=== PATIENT | female | born 1980 | race Caucasian/White ===

== ENCOUNTER 2020-08-19 13:28 | Outpatient (REF) | payer OTHER, SELFPAY ==
[2020-08-19 13:55] LABS: COVID-19 Test Negative (Negative)
== END 2020-08-19 13:29 | disposition home or self-care (01) ==
LOC: HO.LAB 13:28
PROVIDERS: Visit Provider Internal Medicine
DX: Z20.828 Contact with and (suspected) exposure to other viral communicable diseases (principal)
CPT/HCPCS: 87635

== ENCOUNTER 2020-08-23 06:31 | Outpatient (REF) | payer OTHER, SELFPAY ==
[2020-08-23 07:23] LABS: COVID-19 Test Negative (Negative)
== END 2020-08-23 06:32 | disposition home or self-care (01) ==
LOC: HO.LAB 06:31
PROVIDERS: Visit Provider Internal Medicine
DX: Z20.828 Contact with and (suspected) exposure to other viral communicable diseases (principal)
CPT/HCPCS: 87635

== ENCOUNTER 2020-08-26 13:21 | Outpatient (REF) | payer OTHER, SELFPAY ==
[2020-08-26 13:44] LABS: COVID-19 Test Negative (Negative)
== END 2020-08-26 13:22 | disposition home or self-care (01) ==
LOC: HO.LAB 13:21
PROVIDERS: PCP Internal Medicine; Visit Provider Internal Medicine
DX: Z20.828 Contact with and (suspected) exposure to other viral communicable diseases (principal)
CPT/HCPCS: 87635

== ENCOUNTER 2020-12-11 08:35 | Emergency (ER) | payer OTHER, SELFPAY ==
--- NOTE | ~2020-12-11 | CT_ITS ---
EXAMINATION: CT CERVICAL SPINE WITHOUT CONTRAST CLINICAL INFORMATION: Mid and lower neck pain radiating down left arm. Please include upper thoracic spine. COMPARISON: None TECHNIQUE: Multidetector CT imaging of the cervical spine was performed, including the upper thoracic spine. Coronal and sagittal reformats are reviewed. This CT examination was performed using dose optimization techniques as appropriate, variously including the following: *Automated exposure control *Adjustment of mA and/or kV according to patient size (this includes techniques or standardized protocols for targeted exams where dose is matched to indication/reason for exam; i.e. extremities or head) *Use of iterative reconstruction technique DLP: 922 mGy-cm FINDINGS: Atlantooccipital, atlantoaxial and cervical alignment are maintained. No acute fracture or subluxation. Vertebral body heights and intervertebral disc spaces are preserved. Small endplate osteophytes and accompanying of vertebral arthrosis present at C5-C6 and C6-C7. No significant central canal stenosis or osseous neural foraminal encroachment. Imaged thoracic spine to the level of T6 unremarkable. No significant degenerative changes within the upper thoracic spine. Paraspinal soft tissues unremarkable. CT/CT cervical spine wo con IMPRESSION: No acute cervical spine fracture or traumatic malalignment. No significant osseous neural foraminal encroachment. Imaged thoracic spine to level of T6 unremarkable.
[2020-12-11 08:44] VITALS: BP 175/94; PULSE 62; RESP 18; TEMP 36.7; O2SAT 100; BMI 36.3
[2020-12-11] MEDS: oxyCODONE HCl Immed Release 5 MG TABLET PO ×2 (10:02→11:55)
--- NOTE | 2020-12-11 10:52 | ED_ITS ---
HPI - Neck Pain/Injury General Chief Complaint: Neck Pain/Injury Stated Complaint: NECK SHOULDER PAIN Time Seen by Provider: 12/11/20 09:42 Source: patient Mode of arrival: ambulatory Limitations: no limitations History of Present Illness HPI Narrative: 40-year-old female with a past medical history of chronic GERD and Lyme disease presenting to the ED with complaints of bilateral neck/upper back pain for the past 2 weeks getting worse despite taking [id number] Motrin/Tylenol then she followed up with her primary care provider who prescribed her Flexeril, gabapentin and Zanaflex and no symptomatic relief and she reports now the pain is traveling to her left shoulder and elbow. She reports she had an x-ray on Sunday which was within normal limits. MD complaint: neck pain and upper back pain Onset (ago): week(s) (2 weeks worse today) Place: home Radiation: left shoulder and left upper extremity Severity: severe Severity scale (1-10): >10 Quality: aching and spasming Duration: constant Relieving factors: none Exacerbating factors: movement of neck Associated symptoms: none Treatments prior to arrival: other (See above) Related Data Previous Rx's Medication Instructions Recorded acetaminophen [Tylenol Extra 1,000 mg PO QID PRN #14 tab 12/11/20 Strength] diazepam [Valium] 5 mg PO TID PRN #14 tab 12/11/20 famotidine [Pepcid] 20 mg PO BID #20 tab 12/11/20 ketorolac 10 mg PO TID PRN 5 Days #15 tab 12/11/20 lidocaine [Lidoderm] 1 patch TOPICAL DAILY #15 ea 12/11/20 oxycodone 10 mg PO BID PRN #10 tab 12/11/20 prednisone 40 mg PO DAILY 5 Days #10 tab 12/11/20 Allergies Allergy/AdvReac Type Severity Reaction Status Date / Time No Known Allergies Allergy Verified 12/11/20 08:50 Review of Systems Review of Systems: Constitutional : No trauma, No Weight loss, No Fever, No Chills, ENT/Mouth : No Hearing loss, No Ear Pain, No Nasal Congestion, No Sinus Pain, No Hoarseness, No sore throat, No Rhinorrhea, No Swallowing Difficulty Cardiovascular : No Chest Pain, No SOB Respiratory : No Cough, No Dyspnea Gastrointestinal : No Nausea, No Vomiting, No Diarrhea, No abdominal Pain, No Hematochezia, No Melena Genitourinary : No Dysuria, No Urinary Frequency, No Hematuria, No Urinary or Bowel Incontinence/retention Musculoskeletal : + Neck pain, + Back pain, No joint stiffness, No joint swelling Skin : No Skin Lesions, No rash or signs of infection Neuro : No Weakness, No radiation, No Numbness, No headache, no loss of bowel or bladder incontinence, no saddle anesthesia Denies history of IV drug usage. Yes all other systems are reviewed and are negative [facility] Past Medical History Attestation statement: The following information was validated with the patient. Medical History Chronic GERD Lyme disease Social History Social History Smoking Status: Former smoker Use of substances other than those prescribed or required for medical reasons: No Advance Directives: No Advance Directives Information Provided: Yes Physical Exam Vital Signs: Vital Signs: Last Vital Signs Temp 98.0 F 12/11/20 08:44 Pulse 67 12/11/20 11:11 Resp 20 12/11/20 11:11 BP 168/118 H 12/11/20 11:11 Pulse Ox 98 12/11/20 11:11 Body Mass Index 36.3 vital signs have been reviewed as normal and appeared to be correct. Blood pressure hypertensive. Heart rate normal. Respiration rate normal. Temperature normal. Oxygen saturation normal. Appearance: Alert. Oriented X3. In severe pain crying on exam c tears present. Otherwise No acute distress. Head: Normal external exam. Normocephalic. Atraumatic. No Danielle signs noted. No raccoon eyes noted Eyes: PERRLA. EOMI. Conjunctiva and sclera normal. Eyelids normal. ENT: Pharynx normal. Uvula midline. Moist mucous membranes. Neck: Normal inspection. Neck supple. FROM. No adenopathy. Thyroid Normal. Trachea midline. No meningeal signs. No neck mass noted. Tender to palpation of bilateral paracervical musculature and mid cervical tenderness. No step-offs or deformities noted. Patient neuro intact bilaterally and distally on all 4 extremities. Reflexes intact bilaterally and distally in all 4 extremities. No rashes/lesion/induration/fluctuance or signs of infection noted. No edema noted. CVS: Normal heart rate and rhythm. Respiratory: No respiratory distress. Painless inspiration. Back: No CVA tenderness. Full range of motion noted. No obvious deformities, or edema. Mild para-spinal muscular tenderness from cervical to thoracic region. No lumbar tenderness. Full ROM in back and lower extremities. 5/5 strength hip extension/flexion, abduction. No rashes/lesion/induration/fluctuance or signs of infection noted. Skin: Skin warm and dry. Normal skin color. Normal skin turgor. No rashes/lesions/lacerations noted. Extremities: No lower extremity edema. Extremities exhibit normal range of motion. Extremities nontender. Neuro: Oriented X 3. No motor deficit. No sensory deficit. Reflexes normal. Normal steady gait. Course Course Course Narrative: Pt c likely muscular pain, but could be herniated disc. Neuro exam shows no deficits. Not c/w AAA/epidural abscess/dissection. Not c/w vascular etiology, perivertebral / other soft tissue neck / airway infection, or spinal fx / process. No high risk Hx (Incont, fever, immunosupp, recent surgery/LP, coag, signif trauma, wt loss, puls mass, hx/o Ca, TB, or IVDU) to warrant MRI. Not c/w Pyelo/UTI/kidney stone/spinal fx. Not cauda equina syndrome. Will obtain a CT scan of cervical spine due to patient is requesting it if negative will DC c meds and f/u. Patient understands agrees with this plan. MDM - Neck Pain/Injury Medical Records Attestation: I reviewed the patient's medical records. Lab Data Attestation: I reviewed the patient's lab results. Imaging Data Cervical spine CT: Attestation: I personally reviewed and interpreted this imaging study as follows: Radiologist's impression: FINDINGS: Atlantooccipital, atlantoaxial and cervical alignment are maintained. No acute fracture or subluxation. Vertebral body heights and intervertebral disc spaces are preserved. Small endplate osteophytes and accompanying of vertebral arthrosis present at C5-C6 and C6-C7. No significant central canal stenosis or osseous neural foraminal encroachment. Imaged thoracic spine to the level of T6 unremarkable. No significant degenerative changes within the upper thoracic spine. Paraspinal soft tissues unremarkable. CT/CT cervical spine wo con IMPRESSION: No acute cervical spine fracture or traumatic malalignment. No significant osseous neural foraminal encroachment. Imaged thoracic spine to level of T6 unremarkable. Discharge Plan Discharge Clinical Impression: Cervical radiculopathy, Cervical paraspinal muscle spasm, Spasm of thoracic back muscle, Cervical osteophyte Patient Disposition: Home, Self-Care Instructions: Spasmodic Torticollis (ED), Cervical Radiculopathy (ED), Muscle Spasm (ED) Prescriptions: New prednisone 20 mg tablet 40 mg PO DAILY 5 Days Qty: 10 RF: 0 acetaminophen [Tylenol Extra Strength] 500 mg tablet 1,000 mg PO QID PRN (Reason: fever or pain) Qty: 14 RF: 0 ketorolac 10 mg tablet 10 mg PO TID PRN (Reason: pain) 5 Days Qty: 15 RF: 0 famotidine [Pepcid] 20 mg tablet 20 mg PO BID Qty: 20 RF: 0 lidocaine [Lidoderm] 5 % adhesive patch,medicated 1 patch topical DAILY Qty: 15 RF: 0 oxycodone 5 mg tablet 10 mg PO BID PRN (Reason: pain) Qty: 10 RF: 0 diazepam [Valium] 5 mg tablet 5 mg PO TID PRN (Reason: muscle spasm) Qty: 14 RF: 0 Referrals: Gaye Cat MD [Primary Care Provider] - 2 days Stand Alone Forms: Work/School Release Print Language: Prydeinig
[2020-12-11 11:11] VITALS: BP 168/118; PULSE 67; RESP 20; O2SAT 98
--- NOTE | 2020-12-11 11:12 | PC.NURSE ---
pt reports no improvement after the medications, pain still 8/10 feels like spasms. aware
[2020-12-11] MEDS: methylPREDNISolone Sod Succ/PF 125 MG/2 ML VIAL IVPUSH (11:45)
[2020-12-11] MEDS: Ketorolac Tromethamine 30 MG/ML VIAL IVPUSH (11:45)
[2020-12-11] MEDS: diazePAM 5 MG TABLET PO (11:45)
[2020-12-11] MEDS: 0.9 % Sodium Chloride 1,000 ML 999 ML IVCONT (11:45)
--- NOTE | 2020-12-11 12:45 | PC.NURSE ---
pt reports feeling better pain at 1/10
== END 2020-12-11 12:53 | disposition home or self-care (01) ==
PROVIDERS: Emergency Provider Emergency Medicine Emergency Medical Services; PCP Internal Medicine
DX: M54.12 Radiculopathy, cervical region (principal); G24.3 Spasmodic torticollis; M62.830 Muscle spasm of back; M25.78 Osteophyte, vertebrae; A69.20 Lyme disease, unspecified; K21.9 Gastro-esophageal reflux disease without esophagitis
CPT/HCPCS: 72125; 96361; 96374; 96375; 99284; J1885; J2930

== ENCOUNTER 2021-11-11 19:12 | Outpatient (REF) | payer OTHER, SELFPAY ==
[2021-11-11 19:55] LABS: COVID-19 Test Negative (Negative)
== END 2021-11-11 19:13 | disposition home or self-care (01) ==
LOC: HO.LAB 19:12
PROVIDERS: Visit Provider Internal Medicine
DX: Z20.822 Contact with and (suspected) exposure to COVID-19 (principal)
CPT/HCPCS: 87635

== ENCOUNTER 2023-10-10 12:00 | Outpatient (RCR) | payer OTHER, SELFPAY | END 2023-10-24 10:50 | disposition home or self-care (01) | LOC: HO.PT 12:00 | PROVIDERS: PCP Family Medicine; Visit Provider Internal Medicine | DX: M54.50 Low back pain, unspecified (principal); M54.2 Cervicalgia | CPT/HCPCS: 97012; 97110; 97140; 97161 ==

== ENCOUNTER 2024-11-20 08:50 | Emergency (ER) | payer BC, SELFPAY ==
--- NOTE | ~2024-11-20 | XR_ITS ---
EXAMINATION: XR CHEST CLINICAL INFORMATION: cp COMPARISON: None available. TECHNIQUE: 2 views of the chest were obtained. FINDINGS: No significant abnormality is noted involving the heart, lungs, mediastinum, bony thorax or soft tissues. XR/XR chest 2V IMPRESSION: Unremarkable chest examination. Electronically signed by: Alfred Avery MD 11/20/2024 10:23 AM [facility]
--- NOTE | 2024-11-20 08:53 | ECG_ITS ---
Test Reason : chest tightness Blood Pressure : */* mmHG Vent. Rate : 91 BPM Atrial Rate : 91 BPM P-R Int : 160 ms QRS Dur : 92 ms QT Int : 364 ms P-R-T Axes : 50 -4 21 degrees QTcB Int : 447 ms Normal sinus rhythm Possible Left atrial enlargement Minimal voltage criteria for LVH, may be normal variant ( R in aVL ) Borderline ECG No previous ECGs available Referred By: Generic ED Physician Electronically Signed By: CELSO PAYTON MD
[2024-11-20 09:13] VITALS: BP 169/99; PULSE 86; RESP 16; TEMP 36.4; O2SAT 99; BMI 31.9
[2024-11-20 09:34] LABS: MANUAL DIFF FLAG NO
[2024-11-20 09:41] LABS: Basophils Absolute Auto 0.1 X10*3/uL (0.0-0.2); Basophils Percent Auto 1.1 % (0-2); Eosinophils Absolute Auto 0.2 X10*3/uL (0.0-0.4); Eosinophils Percent Auto 3.2 % (0-4); Hematocrit 42.3 % (37.0-47.0); Hemoglobin 14.7 g/dl (12.0-16.0); Imm Gran Abs Auto 0.02 X10*3/uL (0.00-0.03); Imm Gran Pct Auto 0.3 % (0.0-0.4); Lymphocytes Absolute Auto 2.3 X10*3/uL (1.2-4.9); Lymphocytes Percent Auto 34.5 % (20-40); Mean Corpuscular HGB Conc 34.8 g/dl (31.0-35.0); Mean Corpuscular Hemoglobin 32.8 pg (27.0-33.0); Mean Corpuscular Volume 94.4 fL (80.0-98.0); Mean Platelet Volume 8.6 fL (9.4-12.3); Monocytes Absolute Auto 0.5 X10*3/uL (0.1-1.2); Monocytes Percent Auto 7.2 % (2-11); Neutrophils Absolute Auto 3.6 x10*3/uL (2.0-8.3); Neutrophils Percent Auto 53.7 % (45-73); Platelet Count 278 X10*3/uL (160-400); Red Blood Count 4.48 X10*6/uL (4.20-5.50); White Blood Count 6.7 X10*3/uL (4.8-10.8)
[2024-11-20 09:49] LABS: Alanine Aminotransferase 30 U/L (0-31); Albumin Level 4.3 g/dL (3.5-5.0); Alkaline Phosphatase 52 U/L (39-117); Anion Gap 9 (12-20); Aspartate Amino Transferase 22 U/L (5-31); Bilirubin Total 0.7 mg/dL (0.0-1.0); Blood Urea Nitrogen 16 mg/dL (9-16); Calcium 9.5 mg/dL (8.4-10.2); Carbon Dioxide 26 mmol/L (22-29); Chloride 112 mmol/L (96-108); Creatinine Clr Calc Pharmacy 115.2; Estimated Glomerular Filt Rate > 60; Glucose Random 95 mg/dL (60-115); Potassium 4.1 mmol/L (3.3-5.1); Sodium 143 mmol/L (135-145); Total Protein 7.6 g/dL (6.5-8.0)
[2024-11-20 09:57] LABS: Troponin-I High Sensitivity < 2.7 ng/L (<3.5-17.0)
[2024-11-20 10:01] VITALS: BP 166/85; PULSE 86; RESP 12; TEMP 36.6; O2SAT 98
[2024-11-20 10:45] VITALS: BP 145/81; PULSE 84
--- NOTE | 2024-11-20 10:46 | ED_ITS ---
HPI - Chest Pain General Chief Complaint: Chest Pain Stated Complaint: chest pain dizzy Time Seen by Provider: 11/20/24 10:25 Source: patient Mode of arrival: ambulatory Limitations: no limitations History of Present Illness HPI narrative: This is a 43-year-old woman with a past medical history of anxiety and hypertension who presents for evaluation of chest pain. Patient states I have had difficulty controlled my blood pressure . She states that she has had this difficulty for the last approximate week. She reports intermittently experiencing lightheadedness and nausea. She states feeling faint. She states no loss of consciousness or head injury. She states this morning she experienced left-sided chest and shoulder pain, which she states was concerning to her. She states no dyspnea. She states no vomiting. She states no abdominal pain. She states no heart or lung disease. She states no fevers, cough for sputum production or hemoptysis. She states no leg swelling or pain. She states no recent surgery or trauma. Related Data Previous Rx's ?Medication ?Instructions ?Recorded acetaminophen 500 mg tablet 1,000 mg (2 x 500 mg) PO QID PRN 12/11/20 (Tylenol Extra Strength) fever or pain #14 tabs diazepam 5 mg tablet (Valium) 5 mg PO TID PRN muscle spasm #14 12/11/20 tabs famotidine 20 mg tablet (Pepcid) 20 mg PO BID rash #20 tabs 12/11/20 ketorolac 10 mg tablet 10 mg PO TID PRN pain 5 days #15 12/11/20 tabs lidocaine 5 % topical patch 1 patch topical DAILY pain #15 ea 12/11/20 (Lidoderm) oxycodone 5 mg tablet 10 mg (2 x 5 mg) PO BID PRN pain 12/11/20 #10 tabs prednisone 20 mg tablet 40 mg (2 x 20 mg) PO DAILY rash 5 12/11/20 days #10 tabs Allergies Allergy/AdvReac Type Severity Reaction Status Date / Time No Known Allergies Allergy Verified 11/20/24 09:14 Review of Systems 2 Review of Systems: ROS as per HPI [facility] Past Medical History Medical History Chronic GERD Lyme disease Social History Social History Advance Directives: No Advance Directives Information Provided: Yes Do you have a plan to hurt others: No Plan Physical Exam 2 Vital Signs: Vital Signs: Last Vital Signs Temp 97.8 F 11/20/24 10:01 Pulse 86 11/20/24 10:47 Resp 12 11/20/24 10:01 BP 160/85 H 11/20/24 10:47 Pulse Ox 98 11/20/24 10:01 O2 Del Method Room Air 11/20/24 10:01 BMI result Body Mass Index 31.9 Gen: NAD, AOx3 HEENT: NCAT, EOMI, normal conjunctiva CV: RRR, no murmurs appreciated Pulm: CTAB, no increased work of breathing GI: Soft, NTND, no rebound, guarding or rigidity MSK: No asymmetrical calf edema/TTP Neuro: Grossly non focal Medical Decision Making Medical Decision Making MDM Narrative: Differential diagnosis includes, but is not limited to vasovagal presyncope, anxiety, viral illness, pneumothorax. Patient is afebrile and hemodynamically stable on room air. Exam is benign and reassuring. I reviewed labs, EKG and chest x-ray as below. High sensitivity troponin is undetectable effectively ruling out ACS in this low risk patient. On re-examination, patient is well-appearing and in no acute distress. Patient states symptoms have resolved. There is no indication for further emergent evaluation in this otherwise well-appearing patient as above. Patient is provided written and verbal instructions, educational materials, recommendations for outpatient follow-up, strict return precautions and teach back is performed. Patient states understanding and agreement with plan of care. Patient is discharged home in stable and improved condition. Admission/Observation Consideration of admission/observation: Escalation of care including admission/observation considered Lab Data [facility] Lab Attestation statement: I reviewed the patient's lab results. I independently reviewed and interpreted the patient's labs including CBC, metabolic panel and troponin, which are benign and reassuring. There are no cylinder agents, evidence of acute kidney injury, electrolyte abnormality and high sensitivity troponin is negative. 11/20/24 09:27 11/20/24 09:27 Labs: Lab Results 11/20/24 Range/Units 09:27 WBC 6.7 (4.8-10.8) X10*3/uL RBC 4.48 (4.20-5.50) X10*6/uL Hgb 14.7 (12.0-16.0) g/dl Hct 42.3 (37.0-47.0) % MCV 94.4 (80.0-98.0) fL MCH 32.8 (27.0-33.0) pg MCHC 34.8 (31.0-35.0) g/dl RDW 12.0 (11.0-16.0) % Plt Count 278 (160-400) X10*3/uL MPV 8.6 L (9.4-12.3) fL Immature Gran % (Auto) 0.3 (0.0-0.4) % Neut % (Auto) 53.7 (45-73) % Lymph % (Auto) 34.5 (20-40) % Caldwell % (Auto) 7.2 (2-11) % Eos % (Auto) 3.2 (0-4) % Baso % (Auto) 1.1 (0-2) % Lymph # (Auto) 2.3 (1.2-4.9) X10*3/uL Caldwell # (Auto) 0.5 (0.1-1.2) X10*3/uL Eos # (Auto) 0.2 (0.0-0.4) X10*3/uL Baso # (Auto) 0.1 (0.0-0.2) X10*3/uL Abs Immat Gran (auto) 0.02 (0.00-0.03) X10*3/uL Absolute Neuts (auto) 3.6 (2.0-8.3) x10*3/uL Absolute Nucleated RBC 0.000 (0.0-0.012) X10*3/uL Nucleated RBC % (auto) 0.0 (0.0-0.2) /100WBC Sodium 143 (135-145) mmol/L Potassium 4.1 (3.3-5.1) mmol/L Chloride 112 H (96-108) mmol/L Carbon Dioxide 26 (22-29) mmol/L Anion Gap 9 L (12-20) BUN 16 (9-16) mg/dL Creatinine 0.65 (0.5-1.4) mg/dL Estim Creat Clear Calc 115.2 Estimated GFR > 60 Random Glucose 95 (60-115) mg/dL Calcium 9.5 (8.4-10.2) mg/dL Total Bilirubin 0.7 (0.0-1.0) mg/dL AST 22 (5-31) U/L ALT 30 (0-31) U/L Alkaline Phosphatase 52 (39-117) U/L Troponin I High Sens < 2.7 (<3.5-17.0) ng/L Total Protein 7.6 (6.5-8.0) g/dL Albumin 4.3 (3.5-5.0) g/dL Independent Interpretation I performed an independent interpretation of an: EKG and Plain X-Ray Interpretation: I independently reviewed and interpreted the patient's EKG, which demonstrates sinus rhythm at 91 beats per minute, DE 160, QRS 92, QTC 447, no STEMI . I independently reviewed and interpreted the patient's chest x-ray, which demonstrates no focal consolidation, pleural effusion or pneumothorax Radiology Impression Discussion of test interpretation with radiology: I have reviewed the radiologist's reading. Radiologist Impression: [place] [id number] XRay Report Signed Patient: Gaye Elizondo MR#: [id number] : 1980 Acct:[id number] Age/Sex: 43 / F ADM Date: 11/20/24 Loc: .ED Attending Dr: Ordering Physician: Elie Vidal MD Date of Service: 11/20/24 Procedure(s): XR chest 2V Accession Number(s): [id number] cc: Jazmine Jennings MD; Elie Vidal MD~ EXAMINATION: XR CHEST CLINICAL INFORMATION: cp COMPARISON: None available. TECHNIQUE: 2 views of the chest were obtained. FINDINGS: No significant abnormality is noted involving the heart, lungs, mediastinum, bony thorax or soft tissues. XR/XR chest 2V IMPRESSION: Unremarkable chest examination. Electronically signed by: Alfred Avery MD 11/20/2024 10:23 AM [facility] Dictated By: Alfred Avery MD Signed By: <Electronically signed by Alfred Avery MD in OV> 11/20/24 1023 Discharge Plan Discharge Clinical Impression: Chest pain Patient Disposition: Home, Self-Care Instructions: Chest Pain (ED) Additional Instructions: You were seen and evaluated in the emergency room. Your vital signs were normal. Your blood work, EKG and chest x-ray were normal. Please follow-up with your primary care doctor in the next 5-7 days. Please return to the emergency room if you develop any worsening symptoms including, but not limited to fever, chest pain or difficulty breathing. Prescriptions: No Action prednisone 20 mg tablet 40 mg PO DAILY 5 Days Qty: 10 0RF acetaminophen [Tylenol Extra Strength] 500 mg tablet 1,000 mg PO QID PRN (Reason: fever or pain) Qty: 14 0RF ketorolac 10 mg tablet 10 mg PO TID PRN (Reason: pain) 5 Days Qty: 15 0RF famotidine [Pepcid] 20 mg tablet 20 mg PO BID Qty: 20 0RF lidocaine [Lidoderm] 5 % adhesive patch,medicated 1 patch topical DAILY Qty: 15 0RF Rx Instructions: leave on most painful area for up to 12 hrs. May be substituted oxycodone 5 mg tablet 10 mg PO BID PRN (Reason: pain) Qty: 10 0RF diazepam [Valium] 5 mg tablet 5 mg PO TID PRN (Reason: muscle spasm) Qty: 14 0RF Print Language: Yoruba
[2024-11-20 10:47] VITALS: BP 153/94; BP 160/85; PULSE 78; PULSE 86
[2024-11-20 11:25] VITALS: BP 138/81; PULSE 89; RESP 16; TEMP 37.1; O2SAT 97
== END 2024-11-20 11:54 | disposition home or self-care (01) ==
PROVIDERS: Emergency Provider Emergency Medicine; PCP Family Medicine
DX: R07.9 Chest pain, unspecified (principal)
CPT/HCPCS: 36415; 71046; 80053; 84484; 85025; 93005; 99283; 99284

== ENCOUNTER → 2024-11-20 08:53 | Outpatient (BNV) | payer BC, SELFPAY | PROVIDERS: Emergency Provider Emergency Medicine; PCP Family Medicine; Visit Provider Internal Medicine Cardiovascular Disease | DX: R94.31 Abnormal electrocardiogram [ECG] [EKG] (principal) | CPT/HCPCS: 93010 ==

== ENCOUNTER → 2024-11-20 09:30 | Outpatient (BNV) | payer BC, SELFPAY | PROVIDERS: Emergency Provider Emergency Medicine; PCP Family Medicine; Visit Provider Radiology Diagnostic Radiology | DX: R07.9 Chest pain, unspecified (principal) | CPT/HCPCS: 71046 ==